=== PATIENT | female | born 1995 | race African-American/Black ===

== ENCOUNTER 2017-02-22 23:59 | Emergency (ER) | payer SELFPAY ==
[~2017-02-22] VITALS: Ht 165.1 cm; Wt 136.0 kg
[2017-02-23 00:14] VITALS: BP 108/58
== END 2017-02-23 02:00 | disposition left against medical advice (07) ==
LOC: EMS 02-23 00:05
DX: R11.2 Nausea with vomiting, unspecified (principal); Z53.21 Procedure and treatment not carried out due to patient leaving prior to being seen by health care provider